=== PATIENT | male | born 1985 | race African-American/Black ===

== ENCOUNTER 2025-02-13 05:54 | Emergency (ER) | payer OTHER | END 2025-02-13 09:28 | disposition home or self-care (01) | LOC: ERS 05:54 | DX: K85.90 Acute pancreatitis without necrosis or infection, unspecified (principal); K29.70 Gastritis, unspecified, without bleeding; K80.20 Calculus of gallbladder without cholecystitis without obstruction; F17.210 Nicotine dependence, cigarettes, uncomplicated; Z55.6 Problems related to health literacy | CPT/HCPCS: 76705 ==